=== PATIENT | male | born 1955 | race Caucasian/White ===

== ENCOUNTER 2016-12-12 09:55 | Inpatient (IN) | payer BC ==
--- NOTE | 2016-11-17 09:02 | PAT Medication Instructions ---
Service Date Nov 17, 2016. Current Home Medication List No Active Prescriptions or Reported Meds Medication Instructions For Your Scheduled Surgery No Active Prescriptions or Reported Meds- Please contact PAT department if started on any medications prior to surgery. If you have any questions please call us at [phone] (Nimco Raines PA-C) or [phone] or [phone]
[2016-11-17 09:38] LABS: BASO % 0.9 %; BASO ABS # 0.04 K/uL (0-0.2); COMPLETE YES; EOS % 4.1 %; HEMATOCRIT 39.8 % (42-52); IG% 0.2 %; LYMPH % 35.4 %; LYMPH ABS # 1.66 K/uL (1.2-3.4); MEAN CELL VOLUME 93.4 fL (80-100); MEAN CORPUSCULAR HEMOGLOBIN 33.8 pg (25-34); MEAN CORPUSCULAR HGB CONC 36.2 g/dl (32-36); MEAN PLATELET VOLUME 11.1 fL (7.4-10.4); MONO % 11.3 %; NEUT % 48.1 %; PLATELET COUNT 209 K/uL (130-400); RED BLOOD COUNT 4.26 M/uL (4.7-6.1); WHITE BLOOD COUNT 4.69 K/uL (4.8-10.8)
--- NOTE | 2016-11-17 09:44 | DIAGNOSTIC IMAGING REPORT ---
CHEST PREADMISSION(PA/LAT) CLINICAL HISTORY: PAT preoperative evaluation COMPARISON STUDY: No previous studies for comparison. FINDINGS: The bones soft tissues and hemidiaphragms are normal. The cardiomediastinal silhouette is normal. The lungs are clear. The pulmonary vasculature is normal. IMPRESSION: Negative chest. Electronically signed by: Eliud Anglin M.D. 11/17/2016 9:42 AM Dictated Date/Time: 11/17/2016 9:41 AM
[2016-11-17 09:51] LABS: PARTIAL THROMBOPLASTIN RATIO 1.1; PROTHROMBIN TIME (PATIENT) 10.6 SECONDS (9.0-12.0)
[2016-11-17 10:25] LABS: BUN/CREATININE RATIO 19.7 (10-20); CALCIUM 9.2 mg/dl (8.5-10.1); CREATININE 0.89 mg/dl (0.60-1.40); POTASSIUM 3.8 mmol/L (3.5-5.1)
--- NOTE | 2016-12-06 21:23 | HISTORY & PHYSICAL EXAMINATION ---
DATE OF ADMISSION: 12/12/2016 CHIEF COMPLAINT: Left knee pain. HISTORY OF PRESENT ILLNESS: A 61-year-old gentleman from [place] who presents for treatment of his left knee. He has got a long history of bilateral knee pain and discomfort, the left side greater than right. He has been followed by Dr. Enriquez. The pain has been going on and gradually progressive over the past 5 years. He has been treated with multiple injections which have become less successful over time. His knee does pretty much hurt all the time. It is increased with weightbearing. The left knee is worse than the right and he would like to have it replaced. PAST MEDICAL HISTORY: Noncontributory. PREVIOUS SURGERIES: None. ALLERGIES: No known drug allergies. CURRENT MEDICATIONS: Various anti-inflammatories. SOCIAL HISTORY: A 61-year-old gentleman. He is from [place]. 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 FAMILY HISTORY: Noncontributory. REVIEW OF SYSTEMS: Negative for diabetes, neurologic problems, vascular problems or bleeding disorders. He denies any chest pain or shortness of breath. No history of DVT or PE. PHYSICAL EXAMINATION: GENERAL: Reveals a healthy, pleasant, middle-aged male. He looks to be in good health. HEENT: Benign. NECK: Supple. No lymphadenopathy. LUNGS: Clear to auscultation. HEART: Regular rate and rhythm. ABDOMEN: Soft, nontender and nondistended. EXTREMITIES: Grossly neurovascularly intact except as follows: Examination of the left knee reveals the patient ambulates with varus alignment to both knees. He is tender over the medial joint line. He does have a varus thrust with weightbearing. Small knee effusion. Range of motion is 5 to 125. No instability. X-RAYS: X-rays of the left knee were reviewed. It shows advanced left knee DJD. He has got complete loss of his medial joint space. He has subchondral sclerosis. He has got flattening of the tibial plateau. Less severe changes on the right side. ASSESSMENT: A 61-year-old male, with bilateral knee pain and degenerative joint disease. The left side is worse than the right. He has failed conservative treatment and would like to have his left knee replaced. PLAN: We are going to take him to the operating room and do a left total knee replacement. The risks and benefits of this procedure were explained to the patient including but not limited to DVT, PE, , infection, neurological injury, vascular injury, bleeding problems, pain, limited range of motion, stiffness, failure to relieve symptoms, incomplete relief of symptoms, need for further surgery in the future, fracture, leg length inequality, nerve palsy, etc. The patient understands and desires to proceed. Informed consent was obtained. He has stopped his NSAIDs 10 days preop. He is planning on doing the right knee in about 3 months afterwards. He is planning to be discharged to home. His will assist in his care. He will go to outpatient therapy likely. FOZIA
[~2016-12-12] VITALS: Ht 188 cm; Wt 107.4 kg
[2016-12-12] VITALS (7 sets, daily range): BP systolic 113–157; BP diastolic 71–94; PULSE 65–78; TEMP 36.5–37; O2SAT 97–99; Ht 188 cm; Wt 107.4 kg
[2016-12-12] MEDS: BUPIVACAINE LIPOSOME 266 MG, BUPIVACAINE/EPINEPHRINE INJ 50 ML, SODIUM CHLORIDE 0.9% PF... INFIL SCH ×9 (06:00→12:52)
[~2016-12-12 09:55] MED LIST: ACETAMINOPHEN 500 MG TAB PO SCH; CEFAZOLIN 2000 MG/60 ML D5W 60 ML IV SCH; FAMOTIDINE 20 MG TAB PO SCH; GABAPENTIN 300 MG CAP PO SCH; LACTATED RINGER'S 1000ML 1,000 ML IV SCH; LACTATED RINGER'S 1000ML 500 ML IV ONE; LACTATED RINGER'S 1000ML IV SCH; METOCLOPRAMIDE HCL 10 MG TAB PO SCH; ROPIVACAINE 0.5% 5 MG/ML 30 ML VIAL ONE; SCOPOLAMINE 1.5 MG TDSY TD SCH; TRANEXAMIC ACID INJ 1,000 MG in SODIUM CHLORIDE 0.9% 100ML 100 ML IV SCH
[2016-12-12] MEDS ORDERED: MIDAZOLAM HCL 1 MG/ML 2ML VIAL ONE ×2 (10:32→11:42)
[2016-12-12] MEDS ORDERED: FENTANYL CITRATE INJ 50 MCG/1 ML 2 ML VIAL ONE (10:32)
[2016-12-12] MEDS ORDERED: SODIUM CHLORIDE 0.9% PF 50 ML VIAL ONE (10:44)
[2016-12-12] MEDS ORDERED: BUPIVACAINE/EPINEPHRINE 0.25% 1:200,000 30 ML VIAL ONE (10:44)
[2016-12-12] MEDS ORDERED: BACITRACIN 50000 UNIT VIAL ONE (10:45)
[2016-12-12] MEDS ORDERED: BUPIVACAINE LIPOSOME 1/3% 266 MG/20 ML VIAL INFIL ONE (10:45)
[2016-12-12] MEDS ORDERED: BUPIVACAINE 0.5 % 5 MG/1 ML PF 10ML VIAL ONE (11:43)
--- NOTE | 2016-12-12 11:51 | History & Physical Bridge Note ---
H&P Re-Evaluation Bridge Note: I have examined the patient, reviewed the History & Physical and in the interval since the performance of the History & Physical I have noted the following changes of clinical significance: No changes noted
[2016-12-12] MEDS ORDERED: LIDOCAINE HCL 2% 2 ML VIAL (20MG/ML) ONE (12:23)
[2016-12-12] MEDS ORDERED: PROPOFOL IV EMULSION 10 MG/ML 20 ML VIAL IV ONE (12:23)
[2016-12-12] MEDS ORDERED: ATROPINE SULFATE 0.1 MG/ML 5ML SYR IV PRN (13:00)
[2016-12-12] MEDS ORDERED: ONDANSETRON INJ 2 MG/ML 2 ML VIAL IV PRN ×2 (13:00→13:45)
[2016-12-12] MEDS ORDERED: EpHEDrine SULFATE INJ 50 MG/ML AMP IV PRN (13:00)
[2016-12-12] MEDS ORDERED: PHENYLEPHRINE 100MCG/ML 5ML SYR IV PRN (13:00)
[2016-12-12] MEDS ORDERED: HYDROmorphone INJ 2 MG/ML SYR/VIAL IV PRN (13:00)
--- NOTE | 2016-12-12 13:39 | [facility] Post Operative Brief Note ---
Immediate Operative Summary Operative Date Dec 12, 2016. Pre-Operative Diagnosis Left knee degenerative joint disease Post-Operative Diagnosis same as pre-operative Procedure(s) Performed Left Total Knee Arthroplasty, Cemented Surgeon Dr. Rohit Martin Digital Field Service Technician Surgeon(s) Ron Linda PA-C Estimated Blood Loss 50ml Findings Left Knee DJD Fluids (cc crystalloids) 1300 cc Specimens A: Left knee bone and tissue Drains None Anesthesia Spinal Complication(s) None Disposition Recovery Room / PACU
[2016-12-12] MEDS ORDERED: MAGNESIUM HYDROXIDE SUSP 30 ML UDC PO PRN (13:45)
[2016-12-12] MEDS ORDERED: SILVER SULFADIAZINE 1% CR 50 GM JAR EXT PRN (13:45)
[2016-12-12] MEDS ORDERED: MoRPHine SULFATE 2 MG/ML CARP IV PRN (13:45)
[2016-12-12] MEDS ORDERED: ALUMINUM/MAGNESIUM/SIMETH (MAALOX MAX) 30 ML UDC PO PRN (13:45)
[2016-12-12] MEDS ORDERED: METOCLOPRAMIDE HCL INJ 5 MG/ML 2 ML VIAL IV PRN (13:45)
[2016-12-12] MEDS ORDERED: BISACODYL 10 MG SUPP PR PRN (13:45)
[2016-12-12] MEDS ORDERED: DiphenhydrAMINE HCL 50 MG/ML VIAL IV PRN (13:45)
[2016-12-12] MEDS ORDERED: ZOLPIDEM TARTRATE 5 MG TAB PO PRN (13:45)
[2016-12-12] MEDS ORDERED: TAMSULOSIN HCL 0.4 MG CAP PO PRN (13:45)
--- NOTE | 2016-12-12 14:05 | OPERATIVE REPORT ---
DATE OF OPERATION: 12/12/2016 PREOPERATIVE DIAGNOSIS: Left knee degenerative joint disease. POSTOPERATIVE DIAGNOSIS: Same. PROCEDURE PERFORMED: Left cemented posterior stabilized total knee arthroplasty. COMPLICATIONS: None. ESTIMATED BLOOD LOSS: 50 mL. FLUID REPLACEMENT: 1300 mL crystalloid fluid replacement. ANESTHESIA: Spinal with adductor canal block. DRAINS: None. SPECIMENS: Left knee sent for pathology. TOURNIQUET TIME: 58 minutes at 300 mmHg. OPERATIVE INDICATIONS: The patient is a 61-year-old gentleman who has had a fairly long history of bilateral knee pain and discomfort, left side greater than the right. He has been treated conservatively by my partner Dr. Enriquez over the past 5 years. He failed conservative treatment. He elected to proceed with left total knee arthroplasty with plans of doing the right knee in several months. OPERATIVE FINDINGS: Operative findings revealed advanced left knee DJD. He had grade 4 [id number] disease in all 3 compartments. He had osteophytes in all 3 compartments. Significant varus knee with large joint effusion. OPERATIVE IMPLANTS: Operative implants consisted of: 1. Biomet Vanguard size 75 left posterior stabilized femoral component. 2. Biomet size 87 tibial tray. 3. A 14-mm posterior stabilized polyethylene insert. 4. A 37 x 10 all poly patella. OPERATIVE PROCEDURE: The patient was taken to the operating room, identified and placed on the operating table in supine position. All contact areas were appropriately padded. IV antibiotics provided by anesthesia team. A spinal anesthetic and adductor canal block had been provided in the holding area. Sullivan catheter was placed in sterile fashion. Left thigh tourniquet was then placed and left lower extremity was then prepped and draped in the usual sterile fashion. Left leg was elevated and exsanguinated with the use of an Esmarch and tourniquet was placed at 300 mmHg. An anterior approach to the left knee was then performed through a longitudinal incision centered over the patella. Sharp dissection was carried out through the subcutaneous tissues down to the level of the extensor mechanism. A medial parapatellar arthrotomy incision was made. Some subperiosteal dissection was carried out medially. The fat pad was resected from beneath the patellar tendon. The lateral patellofemoral ligament was released. The patella was everted and knee was flexed. The osteophytes were taken off the distal femur. The ACL and PCL were then released from the distal femur and tibia subluxated anteriorly. The external tibial alignment jig was then placed in the anterior face of the tibia and adjusted to about 16 mm medially. Proximal tibial cut was made to remove about a millimeter of bone from the most deficient aspect of the posteromedial tibial plateau. Some osteophytes were taken off medial and posteromedially. The tibia was sized to a size 87. Attention was then drawn to the femur. The distal femur was entered with a sharp drill bit. Intramedullary canal was suctioned. A left 6-degree valgus cutting guide was placed. Distal femoral cutting block was pinned in place. Distal femoral cut was made to take an additional 3 mm of bone off the distal femur. The femur was then sized to a size 75. We did downsize this just slightly smaller than an 80. The AP cutting block was then pinned parallel to the epicondylar axis, which was 5 degrees of external rotation. The anterior cut, anterior chamfer cut, posterior cut, and posterior chamfer cuts were made. Box cutting guide was placed and adjusted slightly lateral and the box cut was made. The remnants of the medial and lateral meniscus were excised. The osteophytes were taken off the posterior aspect of the femur. Trial femoral component was placed. Tibial tray was pinned in maximum external rotation and drill and stem punch were used to create defect in proximal tibia for the tibial tray. The knee was then trialed and the 14-mm insert fit most appropriately. Attention was then drawn to the patella. The patella was cleaned of all soft tissues. Patella thickness measured 25 mm in thickness and was cut down to 15. It was sized to a size 37 patella. Lug holes were drilled for a 37 patella. Lateral osteophyte was removed. Patella button was placed. Knee was taken through range of motion and patella tracked nicely with no thumbs test. Attention was then drawn toward placement of permanent components. All trial components were removed. A bone plug was placed in the distal femur to limit blood loss. A double patch Palacos G cement was mixed. A left size 75 posterior stabilized femoral component, size 87 tibial tray, a 14 mm posterior stabilized polyethylene insert, and a 37 x 10 all poly patella were then cemented in place. Knee was brought out into full extension until cement hardened. A final cement check was then performed. Pericapsular tissues were injected with a total of 100 mL of a combination of 20 mL of Exparel, 30 mL normal saline, and 50 mL of 0.25% Marcaine with epinephrine. The patient did receive 1 gram of tranexamic acid. The tourniquet was then let down for final tourniquet time of 58 minutes. Hemostasis was assured with use of electrocautery. The extensor mechanism was then closed with a combination of #1 PDS suture and #1 Vicryl suture in a [id number] fashion. Extensor mechanism was checked and found to be intact. The subcutaneous tissues were then closed with 2-0 Dexon suture in a buried interrupted fashion. Skin was closed skin amita. Leg was then cleaned and dried and a sterile dressing of Xeroform, 4 x 4, sterile cast padding and an Tao bandage were applied. The patient then transferred to the recovery room in stable condition. The patient tolerated the procedure well with no complications. All needle and sponge counts were correct at the end of the operation. I attest to the content of the Intraoperative Record and any orders documented therein. Any exceptio ns are noted below.
--- NOTE | 2016-12-12 14:25 | DIAGNOSTIC IMAGING REPORT ---
TWO VIEWS LEFT KNEE CLINICAL HISTORY: Postoperative examination. FINDINGS: AP and crosstable lateral portable views of the left knee are obtained. A left knee arthroplasty is in near anatomic alignment. There has been undersurface remodeling of the patella. No acute fracture is seen. There are expected postoperative changes around the knee including skin clips, soft tissue edema, and subcutaneous gas. IMPRESSION: Expected postoperative changes status post left knee arthroplasty. No acute fracture is seen. Electronically signed by: Laz Guerrero M.D. 12/12/2016 2:24 PM Dictated Date/Time: 12/12/2016 2:24 PM
[2016-12-12] MEDS: CHECK SCOPOLAMINE PATCH PLACEMENT SCH ×2 (16:00→23:00)
[2016-12-12] MEDS: D5W AND 1/2NSS + 20MEQ KCL 1,000 ML IV SCH ×2 (16:39→21:42)
--- NOTE | 2016-12-12 17:22 | Anesthesiology Progress Note ---
Anesthesia Post Op Note Date & Time Dec 12, 2016 at 17:22 Vital Signs Pain Intensity: 0.0 Vital Signs Past 12 Hours Date Time Temp Pulse Resp B/P Pulse Ox O2 Delivery O2 Flow Rate FiO2 12/12/16 17:16 36.7 66 16 148/85 99 Nasal Cannula 2.0 12/12/16 16:11 36.7 67 16 152/94 99 Nasal Cannula 2.0 12/12/16 15:32 36.5 65 16 157/90 99 Nasal Cannula 2.0 12/12/16 15:00 Nasal Cannula 12/12/16 15:00 36.5 73 16 138/77 98 Nasal Cannula 2.0 12/12/16 15:00 Nasal Cannula 2.0 12/12/16 14:35 36.6 68 18 134/84 100 Nasal Cannula 3 12/12/16 14:25 69 18 134/75 100 Nasal Cannula 3 12/12/16 14:15 69 18 138/78 100 Mask 5 12/12/16 14:05 67 18 135/62 100 Mask 10 12/12/16 13:55 74 18 128/77 100 Mask 10 12/12/16 13:48 36.6 80 16 135/76 100 Mask 10 12/12/16 10:56 37.0 78 16 140/87 98 Room Air Notes Mental Status: alert / awake / arousable, participated in evaluation Pt Amnestic to Procedure: Yes Nausea / Vomiting: adequately controlled Pain: adequately controlled Airway Patency, RR, SpO2: stable & adequate BP & HR: stable & adequate Hydration State: stable & adequate Anesthetic Complications: no major complications apparent
[2016-12-12] MEDS: FERROUS GLUCONATE 324 MG TAB PO SCH (18:43)
[2016-12-12] MEDS: KETOROLAC TROMETHAMINE 30 MG/ML VIAL IV. SCH ×2 (18:43→23:01)
[2016-12-12] MEDS: OXYCODONE HCL IR 5 MG TAB (IMMEDIATE RELEASE) PO PRN ×2 (19:18→23:04)
[2016-12-12] MEDS ORDERED: TRANEXAMIC ACID INJ 1,000 MG in SODIUM CHLORIDE 0.9% 100ML 100 ML IV SCH (20:00)
[2016-12-12] MEDS: ASPIRIN 325 MG ECTAB PO SCH (20:33)
[2016-12-12] MEDS: TAPENTADOL ER 50 MG TABCR PO SCH (20:33)
[2016-12-12] MEDS: DOCUSATE SODIUM 100 MG CAP PO SCH (20:33)
[2016-12-12] MEDS: CEFAZOLIN IV 2,000 MG in DEXTROSE 5% 50ML 50 ML IV SCH (20:34)
[2016-12-12] MEDS: ACETAMINOPHEN 500 MG TAB PO SCH (20:34)
[2016-12-13] VITALS (7 sets, daily range): BP systolic 121–146; BP diastolic 70–78; PULSE 67–80; TEMP 36.8–37.6; O2SAT 96–98
[2016-12-13] MEDS: CEFAZOLIN IV 2,000 MG in DEXTROSE 5% 50ML 50 ML IV SCH (03:51)
[2016-12-13] MEDS: D5W AND 1/2NSS + 20MEQ KCL 1,000 ML IV SCH ×2 (03:52→11:14)
[2016-12-13] MEDS: KETOROLAC TROMETHAMINE 30 MG/ML VIAL IV. SCH ×4 (05:13→23:09)
[2016-12-13] MEDS: ACETAMINOPHEN 500 MG TAB PO SCH ×3 (05:13→20:47)
[2016-12-13 06:18] LABS: MEAN CELL VOLUME 92.4 fL (80-100); MEAN CORPUSCULAR HEMOGLOBIN 32.8 pg (25-34); MEAN CORPUSCULAR HGB CONC 35.5 g/dl (32-36); PLATELET COUNT 167 K/uL (130-400); RED BLOOD COUNT 3.14 M/uL (4.7-6.1)
[2016-12-13 06:57] LABS: BUN/CREATININE RATIO 14.2 (10-20); CREATININE 0.97 mg/dl (0.60-1.40)
[2016-12-13] MEDS: CHECK SCOPOLAMINE PATCH PLACEMENT SCH ×3 (08:00→23:12)
--- NOTE | 2016-12-13 08:35 | PROGRESS NOTE ---
DATE: 12/13/2016 DATE: 12/13/2016. SUBJECTIVE: A 61-year-old gentleman postop day #1 from left knee replacement. He is doing pretty well. Pretty painful last night, but pain is gone this morning. No chest pain or shortness of breath. Not feeling dizzy or lightheaded. OBJECTIVE: VITAL SIGNS: Temperature 36.9. Vital signs stable. PHYSICAL EXAMINATION: GENERAL: Physical examination reveals a healthy, pleasant, middle-aged male. He is sitting up in bed and reading a book. LUNGS: Clear to auscultation. HEART: Regular rate and rhythm. ABDOMEN: Soft, nontender, nondistended. EXTREMITY EXAMINATION: Grossly neurovascularly intact except as follows: Examination of the left lower extremity reveals the leg to be well aligned. Dressing is clean, dry, and intact. He can dorsiflex and plantarflex his foot appropriately. He is neurologically intact. LABORATORY DATA: Hemoglobin 10.3, hematocrit 29.0. Electrolytes are stable. ASSESSMENT: A 61-year-old gentleman postop day #1 from a left knee replacement, doing pretty well. Pain is controlled. He is anemic, but without symptoms. PLAN: 1. DVT prophylaxis including thigh-high TEDs, SCDs, and aspirin twice a day. 2. PT/OT. Weightbearing as tolerated. Left total knee protocol. 3. Pain control. Doing pretty well with current pain regimen. 4. Anemia. He is slightly anemic, but asymptomatic and should not need any further management for this other than iron supplementation. 5. Disposition: Plan to discharge to home and he is going to do outpatient therapy once adequately recovered.
[2016-12-13] MEDS: ASPIRIN 325 MG ECTAB PO SCH ×2 (09:11→20:46)
[2016-12-13] MEDS: MULTIVITAMIN TAB PO SCH (09:12)
[2016-12-13] MEDS: FERROUS GLUCONATE 324 MG TAB PO SCH ×3 (09:12→17:05)
[2016-12-13] MEDS: DOCUSATE SODIUM 100 MG CAP PO SCH ×2 (09:12→20:46)
[2016-12-13] MEDS: PANTOprazole SOD 40 MG TAB PO SCH (09:12)
[2016-12-13] MEDS: OXYCODONE HCL IR 5 MG TAB (IMMEDIATE RELEASE) PO PRN ×2 (09:16→17:09)
[2016-12-13] MEDS: TAPENTADOL ER 50 MG TABCR PO SCH ×2 (09:16→20:47)
[2016-12-13] MEDS ORDERED: NURSING VERBAL MED ORDER ONE (17:30)
[2016-12-13] MEDS ORDERED: OXYC-57 PO (18:12)
[2016-12-13] MEDS ORDERED: FRRG PO (18:12)
[2016-12-13] MEDS ORDERED: ASPEC325 PO (18:12)
[2016-12-13] MEDS ORDERED: MORP15TA19 PO (18:12)
--- NOTE | 2016-12-13 18:14 | Discharge Instructions ---
Discharge Instructions Date of Service Dec 13, 2016. Admission Reason for Admission: Left Knee Degenerative Joint Disease Discharge Discharge Diagnosis / Problem: Left Knee Replacement Discharge Goals Goal(s): Decrease discomfort, Improve function, Increase independence, Improve disease control, Therapeutic intervention Activity Recommendations Activity Limitations: per Instructions/Follow-up section Weightbearing Status: Left weightbearing . Instructions / Follow-Up Instructions / Follow-Up ACTIVITY RECOMMENDATIONS: Physical Therapy: * You will go to physical therapy three times each week for four to six weeks after your surgery in order to regain your knee range of motion and to retrain your knee to work properly. * It is just as important to make sure you are getting your knee perfectly straight as it is to regain your knee bend. * Taking a pain pill an hour before therapy can help you have a more productive and comfortable therapy session. Home Exercise: * You were shown a series of exercises (heel props, heel slides, etc.) in the hospital. Do these exercises three to four times each day including the exercises you were shown in physical therapy. Walking: * Get up and walk several times each day. For the first four weeks, try not to stand or walk for more than one hour at a time. If you do stand or walk for more than one hour, you will not hurt anything, but your knee and leg will likely swell. * As you feel comfortable, you may change from the walker or crutches to a cane and then to independent walking. MEDICATIONS: New Medicine: * You will likely be taking one or more of these medications: 1. MS Contin - A long-acting pain medication. Take 1 tablet twice a day for the first ten days to decrease your baseline level of pain. 2. Percocet - A quick and shorter-acting pain medication. Take one to two tablets every four to six hours to lessen your pain. 3. Iron Sulfate - Take three times each day for the month after surgery to help you replace the blood lost during surgery. 4. Aspirin - Thins your blood to lessen the chance of forming a blood clot. * The most common side effects of pain medicine and iron are nausea and constipation. If nausea or constipation is too much of a problem or if you have any questions about your new medicines or doses, call [facility] at [phone]. We will try to help you manage these issues. VERY IMPORTANT TO READ AND REVIEW" Pain: * The immediate post-operative period after knee replacement surgery is often quite painful. * You are given a prescription for pain medicine. You should take it, as directed, when you need it, especially before physical therapy and before going to bed. Pain that interferes with sleep is very common and can last several months. * You will likely need pain medicine for the first four to six weeks. It will not stop all of the pain. The pain will lessen and as you feel better, you may change to milder pain medicine such as Tylenol. * The most common side effects of pain medicine are nausea and constipation, so don't take more than you need. SPECIAL CARE INSTRUCTIONS: TEDs/Elastic Stockings: * The white elastic stockings help limit swelling and prevent blood clots from forming in your legs. The more you wear them, the more they work. * Wear them for six weeks after knee replacement surgery and four weeks after partial knee replacement. Prevention of Infection: * Take antibiotics one hour before any dental cleaning, dental work, urological procedure, gastrointestinal procedure or any invasive surgery in order to prevent your new joint from getting infected. * You may get the antibiotics from the doctor performing the procedure or you may call our office at before and we will call in a prescription to the pharmacy of your choice. Things to Watch For: * Drainage from the incision site that occurs more than one week after your surgery. * Severely increased knee/leg pain or swelling. * Increased redness at the incision site. * Fever above 102 degrees Fahrenheit. * Unusual chest pain or shortness of breath. * Unusual pain or burning with urination. Call [facility] at with any of the above problems or if you have any questions about your medicines or recovery. FOLLOW UP VISIT: Make an appointment to see your doctor for approximately two weeks after surgery for a progress check and staple removal by calling the office at . Current Hospital Diet Patient's current hospital diet: Regular Diet Discharge Diet Recommended Diet: Regular Diet Procedures Procedures Performed: Left Total Knee Arthroplasty, Cemented Pending Studies Studies pending at discharge: no Medical Emergencies . Who to Call and When: Medical Emergencies: If at any time you feel your situation is an emergency, please call [phone] immediately. . Non-Emergent Contact Non-Emergency issues call your: Surgeon . "Provider Documentation" section prepared by Rohit Martin. VTE Core Measure Inpt VTE Proph given/why not?: Other Anticoagulation, T.E.D. Stockings, SCD's
[2016-12-14] MEDS ORDERED: NURSING DECISION MEDICATION ORDER SCH (03:45)
[2016-12-14] MEDS: KETOROLAC TROMETHAMINE 30 MG/ML VIAL IV. SCH (05:22)
[2016-12-14] MEDS: ACETAMINOPHEN 500 MG TAB PO SCH (05:22)
[2016-12-14 06:32] VITALS: BP 134/88; PULSE 108; TEMP 36.8; O2SAT 97
[2016-12-14] MEDS: PANTOprazole SOD 40 MG TAB PO SCH (07:16)
[2016-12-14] MEDS: FERROUS GLUCONATE 324 MG TAB PO SCH (07:16)
[2016-12-14] MEDS: MULTIVITAMIN TAB PO SCH (07:16)
[2016-12-14] MEDS: TAPENTADOL ER 50 MG TABCR PO SCH (07:17)
[2016-12-14] MEDS: ASPIRIN 325 MG ECTAB PO SCH (07:31)
[2016-12-14] MEDS: DOCUSATE SODIUM 100 MG CAP PO SCH (07:31)
--- NOTE | 2016-12-14 08:36 | PROGRESS NOTE ---
DATE: 12/14/2016 SUBJECTIVE: A 61-year-old gentleman postop day 2 from a right knee replacement. He is doing pretty well. Denies any chest pain or shortness of breath. Not feeling dizzy or lightheaded. Pain has been controlled. OBJECTIVE: VITAL SIGNS: Temperature 36.8. Vital signs stable. GENERAL: Reveals a healthy, pleasant, middle-aged male. He is sitting up in his bedside chair reading a book and looks pretty comfortable. LUNGS: Clear to auscultation. HEART: Regular rate and rhythm. ABDOMEN: Soft, nontender, nondistended. EXTREMITIES: Grossly neurovascularly intact except as follows: Examination of the left lower extremity reveals the dressing to be clean, dry and intact. Leg is well aligned. Some mild swelling. He is neurologically intact. ASSESSMENT: A 61-year-old gentleman postop day 2 from a left knee replacement, doing pretty well. Pain is controlled. PLAN: 1. DVT prophylaxis including thigh-high TEDs, SCDs, and aspirin twice a day. 2. PT/OT. Weightbearing as tolerated. Left total knee protocol. 3. Pain control, doing pretty well with current pain regimen. 4. Disposition: Plan to discharge to home. He is going to do outpatient therapy.
[2016-12-14 09:07] VITALS: BP 134/88; PULSE 108; O2SAT 97
[2016-12-14 11:48] VITALS: BP 134/88; PULSE 108; TEMP 36.8; O2SAT 97
--- NOTE | 2016-12-16 15:10 | EDITING REQUIRED CODING QUERY ---
ANEMIA Dear , To promote full compliance with coding requirements relating to patient care, physician participation is requested in all cases of multimedia production assistant uncertainty. Please assist us with the question(s) below: Coding Question(s): anemia Medical documentation: A 61-year-old gentleman postop day #1 from a left knee replacement, doing pretty well. Pain is controlled. He is anemic, but without symptoms. Please specify the known or suspected type by placing an "X" within the parenthesis (x). If other, please document type. Examples are: ( ) Acute blood loss anemia (x) Acute Postoperative blood loss anemia ( ) Acute postoperative anemia due to dilutional fluids ( ) Chronic blood loss anemia ( ) Anemia of chronic disease ( ) Anemia due to renal disease ( ) Iron deficient anemia ( ) Anemia, unspecified or other ( ) Other: (please specify) ( ) Unable to determine Thank you for your time. Karol Harper, DRYING MACHINE BACK TENDER
--- NOTE | 2016-12-16 15:13 | EDITING REQUIRED CODING QUERY ---
ANEMIA Dear , To promote full compliance with coding requirements relating to patient care, physician participation is requested in all cases of cake winder uncertainty. Please assist us with the question(s) below: Coding Question(s): ANEMIA Medical documentation: A 61-year-old gentleman postop day #1 from a left knee replacement, doing pretty well. Pain is controlled. He is anemic, but without symptoms. Please specify the known or suspected type by placing an "X" within the parenthesis (x). If other, please document type. Examples are: ( ) Acute blood loss anemia ( ) Acute Postoperative blood loss anemia ( ) Acute postoperative anemia due to dilutional fluids ( ) Chronic blood loss anemia ( ) Anemia of chronic disease ( ) Anemia due to renal disease ( ) Anemia in neoplastic disease ( ) Iron deficient anemia ( ) Anemia, unspecified or other ( ) Other: (please specify) ( ) Unable to determine Thank you for your time, Karol Harper, PULPIT OPERATOR
--- NOTE | 2016-12-22 19:03 | DISCHARGE SUMMARY ---
ADMITTING PHYSICIAN AND SURGEON: . ADMITTING DIAGNOSIS: Left knee degenerative joint disease. SURGERY PERFORMED: Left total knee arthroplasty. SECONDARY DIAGNOSIS: Noncontributory. CONSULTS: None obtained. HISTORY AND PHYSICAL EXAMINATION: Well documented in the patient's chart. HOSPITAL COURSE: The patient was admitted on 12/12/2016, underwent total knee arthroplasty and tolerated the procedure well, there were no complications. He was transferred to the PACU postoperatively and later to the orthopedic floor for further care. He was given Ancef for antibiotic prophylaxis; JAIR stockings, SCDs and aspirin for DVT prophylaxis. Hemoglobin, hematocrit, and vital signs were monitored during his hospital stay and remained stable. He developed some postoperative anemia with hemoglobin of 10.3. Did not require any blood transfusions. There were no complications. By postoperative day 2, he was tolerating a general diet. Pain was controlled with oral pain medicine. He was participating in physical therapy and had no signs or symptoms of deep vein thrombosis. On postoperative day 2, he was discharged home in good condition. He was given printed discharge instructions including prescriptions for aspirin 325 mg b.i.d., iron supplement, MS Contin and Percocet. Continue physical therapy, weightbearing as tolerated, JAIR stockings. Follow up with in 10-12 days or sooner if there are problems or concerns.
== END 2016-12-14 12:30 | disposition home or self-care (01) | DRG 470 ==
LOC: ENRESERVTM → ENRESERVDT → C.ACU 09:55 → C.3E 13:42
PROVIDERS: ADMIT Orthopaedic Surgery Sports Medicine; ATTEND Orthopaedic Surgery Sports Medicine
PROC: 0SRD0J9 Replacement of Left Knee Joint with Synthetic Substitute, Cemented, Open Approach (ICD-10-PCS; principal; 2016-12-14)
DX: M17.12 Unilateral primary osteoarthritis, left knee (principal); D62 Acute posthemorrhagic anemia; E66.9 Obesity, unspecified; Z68.30 Body mass index [BMI] 30.0-30.9, adult; Z87.891 Personal history of nicotine dependence; Z79.899 Other long term (current) drug therapy

== ENCOUNTER → 2017-02-12 | Outpatient (CLI) | payer BC ==
[~2017-02-12] MED LIST changes: +ACET-24 PO; -ACETAMINOPHEN 500 MG TAB PO SCH; +ASPEC325 PO; -CEFAZOLIN 2000 MG/60 ML D5W 60 ML IV SCH; -FAMOTIDINE 20 MG TAB PO SCH; -GABAPENTIN 300 MG CAP PO SCH; -LACTATED RINGER'S 1000ML 1,000 ML IV SCH; -LACTATED RINGER'S 1000ML 500 ML IV ONE; -LACTATED RINGER'S 1000ML IV SCH; -METOCLOPRAMIDE HCL 10 MG TAB PO SCH; +MORP-157 PO; -ROPIVACAINE 0.5% 5 MG/ML 30 ML VIAL ONE; +RXC5 PO; -SCOPOLAMINE 1.5 MG TDSY TD SCH; -TRANEXAMIC ACID INJ 1,000 MG in SODIUM CHLORIDE 0.9% 100ML 100 ML IV SCH
[2017-02-12 12:55] LABS: BASO % 0.8 %; BASO ABS # 0.04 K/uL (0-0.2); COMPLETE YES; EOS % 4.2 %; HEMATOCRIT 40.9 % (42-52); IG% 0.2 %; LYMPH % 33.9 %; LYMPH ABS # 1.79 K/uL (1.2-3.4); MEAN CELL VOLUME 94.7 fL (80-100); MEAN CORPUSCULAR HEMOGLOBIN 33.1 pg (25-34); MEAN PLATELET VOLUME 10.6 fL (7.4-10.4); MONO % 16.1 %; NEUT % 44.8 %; PLATELET COUNT 271 K/uL (130-400); RED BLOOD COUNT 4.32 M/uL (4.7-6.1); WHITE BLOOD COUNT 5.28 K/uL (4.8-10.8)
[2017-02-12 13:06] LABS: PARTIAL THROMBOPLASTIN RATIO 1.2; PROTHROMBIN TIME (PATIENT) 10.7 SECONDS (9.0-12.0)
[2017-02-12 13:13] LABS: BLOOD UREA NITROGEN 12 mg/dl (7-18); BUN/CREATININE RATIO 14.4 (10-20); C-REACTIVE PROTEIN < 0.29 mg/dl (0-0.29); CARBON DIOXIDE 28 mmol/L (21-32); CHLORIDE 105 mmol/L (98-107); CREATININE 0.85 mg/dl (0.60-1.40); GLUCOSE 83 mg/dl (70-99); POTASSIUM 4.1 mmol/L (3.5-5.1); SODIUM 140 mmol/L (136-145)
[2017-02-12 13:18] LABS: CALCIUM 9.3 mg/dl (8.5-10.1)
== END | disposition home or self-care (01) ==
LOC: C.LABMFLN 14:10
PROVIDERS: ATTEND Orthopaedic Surgery Sports Medicine
DX: Z01.818 Encounter for other preprocedural examination (principal)

== ENCOUNTER 2017-03-06 10:20 | Inpatient (IN) | payer BC ==
[2017-02-05 07:32] VITALS: BMI 31.0
--- NOTE | 2017-02-27 00:21 | HISTORY & PHYSICAL EXAMINATION ---
DATE OF ADMISSION: 03/06/2017 CHIEF COMPLAINT: Right knee pain. HISTORY OF PRESENT ILLNESS: The patient is a 61-year-old gentleman who is status post left knee replacement done 12/12/2016. He now presents for surgical treatment of his right knee. He has got a 5-plus-year history of right knee pain and discomfort. He has been followed by my partner Dr. Enriquez. Treatments have become less successful over time. His left knee replacement is doing well and would like to proceed with right knee replacement. The pain is global in his knee. It is increased with weightbearing. PAST MEDICAL HISTORY: Noncontributory. PREVIOUS SURGERIES: Include left total knee replacement done on 12/12/2016. ALLERGIES: None. CURRENT MEDICATIONS: Various anti-inflammatories. SOCIAL HISTORY: A 61-year-old male. He is from [place]. 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 FAMILY HISTORY: Noncontributory. REVIEW OF SYSTEMS: Negative for diabetes, neurologic problems, vascular problems, bleeding disorders. Denies any chest pain, no shortness of breath. No history of DVT or PE. PHYSICAL EXAMINATION: GENERAL: Reveals a healthy, pleasant middle-aged male. He looks to be in good health. HEENT: Benign. NECK: Supple, no lymphadenopathy. LUNGS: Clear to auscultation. HEART: Has a regular rate and rhythm. ABDOMEN: Soft, nontender, nondistended. EXTREMITIES: Grossly neurovascularly intact except as follows: Examination of the right knee reveals the patient walks with a varus alignment to his knee. Small knee effusion. He is tender over the medial joint line. Range of motion is 5-120. No instability. Examination of the left knee reveals some mild residual swelling. Range of motion 0-115. Good straight leg raise. No signs of infection. X-RAYS: X-ray of the right knee reviewed. It shows advanced right knee DJD. He has got complete loss of his medial joint space. He has got subchondral sclerosis. ASSESSMENT: A 61-year-old gentleman now 3 months out from left total knee replacement with advanced right knee degenerative joint disease. Very happy with his left knee, would like to have his right knee replaced. PLAN: We will take him to the operating room and do right total knee replacement. The risks and benefits of the procedure were explained to the patient including but not limited to DVT, PE, , infection, neurological injury, vascular injury, bleeding problem, pain, limited range of motion, stiffness, failure to relieve symptoms, incomplete relief of symptoms, need for further surgery in the future, fracture, leg length inequality, nerve palsy, etc. The patient understands and desires to proceed. Informed consent was obtained. As far as discharge plans, he is planning to be discharged to home. He will likely use some home health care agency versus going directly to therapy depending on how he does.
[~2017-03-06] VITALS: Ht 185.4 cm; Wt 109.1 kg
[2017-03-06] VITALS (8 sets, daily range): BP systolic 120–147; BP diastolic 71–90; PULSE 68–88; TEMP 36.5–36.9; O2SAT 94–98; Ht 185.4 cm; Wt 109.1 kg
[~2017-03-06 10:20] MED LIST changes: -ACET-24 PO; +ACETAMINOPHEN 500 MG TAB PO SCH; -ASPEC325 PO; +BUPIVACAINE 0.5 % 5 MG/1 ML PF 10ML VIAL ONE; +BUPIVACAINE LIPOSOME 266 MG, BUPIVACAINE/EPINEPHRINE INJ 50 ML, SODIUM CHLORIDE 0.9% PF... INFIL SCH; +BUPIVACAINE/EPINEPHRINE 0.25% 1:200,000 30 ML VIAL ONE; +CEFAZOLIN 2000 MG/60 ML D5W 60 ML IV SCH; +DEXAMETHASONE SOD INJ 4 MG/ML VIAL ONE; +FAMOTIDINE 20 MG TAB PO SCH; +GABAPENTIN 300 MG CAP PO SCH; +LACTATED RINGER'S 1000ML IV SCH; +LACTATED RINGER'S 500 ML IV SCH; +METOCLOPRAMIDE HCL 10 MG TAB PO SCH; -MORP-157 PO; -RXC5 PO; +SCOPOLAMINE 1.5 MG TDSY TD SCH; +TRANEXAMIC ACID INJ 1,000 MG in SODIUM CHLORIDE 0.9% 100ML 100 ML IV SCH
[2017-03-06] MEDS ORDERED: MIDAZOLAM HCL 1 MG/ML 2ML VIAL ONE ×2 (10:49)
[2017-03-06] MEDS ORDERED: LIDOCAINE HCL 2% 2 ML VIAL (20MG/ML) ONE (11:07)
[2017-03-06] MEDS ORDERED: PROPOFOL IV EMULSION 10 MG/ML 20 ML VIAL IV ONE (11:07)
[2017-03-06] MEDS ORDERED: BUPIVACAINE LIPOSOME 1/3% 266 MG/20 ML VIAL INFIL ONE (11:54)
[2017-03-06] MEDS ORDERED: SODIUM CHLORIDE 0.9% PF 50 ML VIAL ONE (11:54)
[2017-03-06] MEDS ORDERED: BUPIVACAINE/EPINEPHRINE 0.25% 1:200,000 30 ML VIAL ONE (11:54)
[2017-03-06] MEDS ORDERED: BACITRACIN 50000 UNIT VIAL ONE (11:54)
[2017-03-06] MEDS ORDERED: ONDANSETRON INJ 2 MG/ML 2 ML VIAL IV PRN ×2 (13:00→15:00)
[2017-03-06] MEDS ORDERED: ATROPINE SULFATE 0.1 MG/ML 5ML SYR IV PRN (13:00)
[2017-03-06] MEDS ORDERED: PROMETHAZINE HCL INJ 6.25 MG in SODIUM CHLORIDE 0.9% 50ML 50 ML IV PRN (13:00)
[2017-03-06] MEDS ORDERED: FENTANYL CITRATE INJ 50 MCG/1 ML 2 ML VIAL IV PRN (13:00)
[2017-03-06] MEDS ORDERED: EpHEDrine SULFATE INJ 50 MG/ML AMP IV PRN (13:00)
--- NOTE | 2017-03-06 14:49 | [facility] Post Operative Brief Note ---
Immediate Operative Summary Operative Date Mar 06, 2017. Pre-Operative Diagnosis Advanced Degenerative Joint Disease Right Knee Post-Operative Diagnosis Advanced Degenerative Joint Disease Right Knee Procedure(s) Performed Right Total Knee Arthroplasty Surgeon Benzene Still Utility Operator Surgeon(s) KINDRA White Estimated Blood Loss 50 ml Findings Right Knee DJD Fluids (cc crystalloids) 1500 cc Specimens A. Right Knee Bone and Tissue Drains None Anesthesia Spinal Complication(s) None Disposition Recovery Room / PACU
[2017-03-06] MEDS ORDERED: MAGNESIUM HYDROXIDE SUSP 30 ML UDC PO PRN (15:00)
[2017-03-06] MEDS ORDERED: ZOLPIDEM TARTRATE 5 MG TAB PO PRN (15:00)
[2017-03-06] MEDS ORDERED: OXYCODONE HCL IR 5 MG TAB (IMMEDIATE RELEASE) PO PRN (15:00)
[2017-03-06] MEDS ORDERED: METOCLOPRAMIDE HCL INJ 5 MG/ML 2 ML VIAL IV PRN (15:00)
[2017-03-06] MEDS ORDERED: SILVER SULFADIAZINE 1% CR 50 GM JAR EXT PRN (15:00)
[2017-03-06] MEDS ORDERED: DiphenhydrAMINE HCL 50 MG/ML VIAL IV PRN (15:00)
[2017-03-06] MEDS ORDERED: ALUMINUM/MAGNESIUM/SIMETH (MAALOX MAX) 30 ML UDC PO PRN (15:00)
[2017-03-06] MEDS ORDERED: MoRPHine SULFATE 2 MG/ML CARP IV PRN (15:00)
[2017-03-06] MEDS ORDERED: BISACODYL 10 MG SUPP PR PRN (15:00)
--- NOTE | 2017-03-06 15:29 | DIAGNOSTIC IMAGING REPORT ---
RIGHT KNEE 1 OR 2 VIEWS ROUTINE CLINICAL HISTORY: Degenerative arthritis. Postop study. COMPARISON: None. DISCUSSION: There are postsurgical changes of a total right knee arthroplasty and patellar resurfacing. The femoral and tibial components appear well seated. Overlying skin amita are visualized. There is air within soft tissues consistent with recent surgery. IMPRESSION: Postsurgical changes of a total right knee arthroplasty. Electronically signed by: Kuldeep Sarah M.D. 03/06/2017 3:28 PM Dictated Date/Time: 03/06/2017 3:27 PM
--- NOTE | 2017-03-06 16:48 | Anesthesiology Progress Note ---
Anesthesia Post Op Note Date & Time Mar 06, 2017 at 16:47 Vital Signs Pain Intensity: 0 Vital Signs Past 12 Hours Date Time Temp Pulse Resp B/P (MAP) Pulse Ox O2 Delivery O2 Flow Rate FiO2 03/06/17 16:29 76 15 97 03/06/17 16:29 74 15 16 16:26 119/73 1617 16:24 74 22 94 1617 16:24 73 22 16 16:22 116/72 1617 16:19 67 18 97 1617 16:19 69 18 16 16:16 135/82 16 16:14 69 15 92 16 16:14 68 15 03/06/17 16:11 118/78 03/06/17 16:09 73 15 16 16:09 71 15 93 03/06/17 16:06 111/66 16 16:04 73 17 03/06/17 16:04 73 17 94 03/06/17 16:03 69 16 96 16 16:03 69 16 16 16:01 122/73 1617 15:58 76 17 93 16 15:58 66 17 16 15:56 112/72 16 15:53 70 15 1617 15:53 70 15 96 1617 15:51 109/70 16/17 15:49 36.9 71 17 109/70 (77) 98 Nasal Cannula 2 03/06/17 15:48 67 13 1617 15:48 71 13 98 16/17 15:46 115/74 16/17 15:43 79 18 94 16/17 15:43 74 18 16/17 15:41 117/70 16/17 15:38 74 14 96 16/17 15:38 71 14 16/17 15:36 118/69 16/17 15:33 69 18 16/17 15:33 72 18 96 16/17 15:31 119/72 16/17 15:28 90 17 99 16/17 15:28 84 17 16/17 15:27 70 15 95 03/06/17 15:27 70 15 03/06/17 15:26 107/72 03/06/17 15:22 73 15 03/06/17 15:22 79 15 90 03/06/17 15:21 112/71 03/06/17 15:17 69 19 03/06/17 15:17 69 19 95 03/06/17 15:16 112/69 03/06/17 15:12 76 20 92 03/06/17 15:12 76 20 03/06/17 15:11 116/75 03/06/17 15:07 79 16 03/06/17 15:07 80 16 97 03/06/17 15:06 81 14 131/78 95 03/06/17 15:06 79 14 03/06/17 15:01 82 17 109/72 93 03/06/17 15:01 81 17 03/06/17 14:56 79 15 03/06/17 14:56 81 15 114/67 96 03/06/17 14:52 112/74 03/06/17 14:51 82 97 03/06/17 14:51 36.4 86 18 112/74 96 Room Air 03/06/17 14:51 82 03/06/17 10:44 36.8 80 18 137/90 97 Room Air Notes Mental Status: alert / awake / arousable, participated in evaluation Pt Amnestic to Procedure: Yes Nausea / Vomiting: adequately controlled Pain: adequately controlled Airway Patency, RR, SpO2: stable & adequate BP & HR: stable & adequate Hydration State: stable & adequate Neuraxial Anesthesia: was administered, sensory block is resolving Anesthetic Complications: no major complications apparent
[2017-03-06] MEDS: CHECK SCOPOLAMINE PATCH PLACEMENT SCH (16:55)
[2017-03-06] MEDS: D5W AND 1/2NSS + 20MEQ KCL 1,000 ML IV SCH (18:28)
[2017-03-06] MEDS: KETOROLAC TROMETHAMINE 30 MG/ML VIAL IV. SCH (19:58)
[2017-03-06] MEDS: TAPENTADOL ER 50 MG TABCR PO SCH (21:27)
[2017-03-06] MEDS: ASPIRIN 325 MG ECTAB PO SCH (21:28)
[2017-03-06] MEDS: DOCUSATE SODIUM 100 MG CAP PO SCH (21:29)
[2017-03-06] MEDS: ACETAMINOPHEN 500 MG TAB PO SCH (21:29)
[2017-03-06] MEDS: SENNA 8.6 MG TAB PO SCH (21:29)
[2017-03-06] MEDS ORDERED: TRANEXAMIC ACID INJ 1,000 MG in SODIUM CHLORIDE 0.9% 100ML 100 ML IV SCH (21:30)
[2017-03-06] MEDS: CEFAZOLIN IV 2,000 MG in DEXTROSE 5% 50ML 50 ML IV SCH (22:08)
[2017-03-07] MEDS: D5W AND 1/2NSS + 20MEQ KCL 1,000 ML IV SCH ×3 (00:17→13:54)
[2017-03-07] MEDS: CHECK SCOPOLAMINE PATCH PLACEMENT SCH ×4 (00:18→23:38)
[2017-03-07] MEDS: KETOROLAC TROMETHAMINE 30 MG/ML VIAL IV. SCH ×4 (01:43→20:25)
[2017-03-07 02:55] VITALS: BP 119/79; PULSE 78; TEMP 36.9; O2SAT 96
[2017-03-07] MEDS: CEFAZOLIN IV 2,000 MG in DEXTROSE 5% 50ML 50 ML IV SCH (06:07)
[2017-03-07] MEDS: ACETAMINOPHEN 500 MG TAB PO SCH ×3 (06:08→22:28)
[2017-03-07 06:25] LABS: HEMATOCRIT 33.3 % (42-52); MEAN CORPUSCULAR HEMOGLOBIN 31.8 pg (25-34); MEAN CORPUSCULAR HGB CONC 34.2 g/dl (32-36); MEAN PLATELET VOLUME 11.2 fL (7.4-10.4); PLATELET COUNT 179 K/uL (130-400); RED BLOOD COUNT 3.58 M/uL (4.7-6.1)
[2017-03-07 07:08] LABS: CREATININE 0.96 mg/dl (0.60-1.40)
[2017-03-07 07:09] LABS: BUN/CREATININE RATIO 13.3 (10-20); POTASSIUM 3.9 mmol/L (3.5-5.1)
[2017-03-07 07:24] VITALS: BP 136/85; PULSE 64; TEMP 36.5; O2SAT 98
[2017-03-07 07:25] VITALS: O2SAT 98
--- NOTE | 2017-03-07 08:21 | OPERATIVE REPORT ---
DATE OF OPERATION: 03/06/2017 SURGEON: Rohit Martin MD. CUSTODIAN MANAGER: KINDRA Carson. PREOPERATIVE DIAGNOSIS: Right knee degenerative joint disease. POSTOPERATIVE DIAGNOSIS: Same. PROCEDURE PERFORMED: Right cemented posterior stabilized total knee arthroplasty. COMPLICATIONS: None. ESTIMATED BLOOD LOSS: 50 mL FLUID REPLACEMENT: 1500 mL crystalloid fluid replacement. ANESTHESIA: Spinal with adductor canal block. DRAINS: None. SPECIMENS: Right knee sent for pathology. TOURNIQUET TIME: 61 minutes at 300 mmHg. OPERATIVE INDICATIONS: The patient is a 61-year-old very active gentleman, with a several year history of increasing bilateral knee pain and discomfort. He has been through extensive conservative treatment. He has continued to limit his daily activities. He underwent a left knee replacement 3.5 months ago and has done well from that. He has continued to be bothered by right knee pain. He elected to proceed with right total knee arthroplasty. OPERATIVE FINDINGS: Operative findings revealed advanced right knee DJD. He had extensive and diffuse grade 4 changes in the medial compartment as well as the patellofemoral compartment. The lateral compartment was fairly well-preserved. He had a moderate sized joint effusion. He had a fixed varus deformity to his knee. OPERATIVE IMPLANTS: Operative implants consisted of: 1. A Biomet size 75 posterior stabilized femoral component. 2. A Biomet size 83 tibial tray. 3. A 12 mm posterior stabilized polyethylene insert. 4. A 37 x 10 all poly patella. OPERATIVE PROCEDURE: The patient was taken to the operating room, identified and placed on the operating table in supine position. All contact areas were appropriately padded. IV antibiotics were provided by the anesthesia team. A spinal anesthetic and adductor canal block had been provided in the holding area. Sullivan catheter was placed in sterile fashion. A right thigh tourniquet was then placed and the right lower extremity was then prepped and draped in the usual sterile fashion. Right leg was elevated and exsanguinated with Esmarch and tourniquet was placed at 300 mmHg. An anterior approach to the right knee was then performed through a longitudinal incision centered over the patella. Sharp dissection was carried through the subcutaneous tissues down to the level of the extensor mechanism. A medial parapatellar arthrotomy incision was made. Some subperiosteal dissection was carried out medially. The fat pad was resected from beneath the patellar tendon. Lateral patellofemoral ligament was released. The patella was everted and knee was flexed. The osteophytes were taken off the distal femur. The ACL and PCL were then released from the distal femur and the tibia subluxated anteriorly. The external tibial alignment jig was then placed in the anterior face of the tibia and adjusted 16 mm medially. Proximal tibial cut was made to remove about a millimeter of bone from the most deficient aspect of the medial tibial plateau. Some osteophytes were taken off medial and posteromedially. Tibia size was size 83. Attention was then drawn to the femur. The distal femur was entered with a sharp drill. Intramedullary canal was suctioned. A right 6 degree valgus cutting guide was placed. Distal femoral cutting block was pinned in place. Distal femoral cut was made to take an additional 3 mm of bone off the distal femur. The femur was then sized to a size 75. We did downsize this slightly. The AP cutting block was pinned parallel to the epicondylar axis, which was 5 degrees of external rotation. The anterior cut, anterior chamfer, posterior cut, and posterior chamfer cuts were made. Box cutting guide was placed and adjusted slightly lateral, box cut was made. The knee was flexed. The remnants of the medial and lateral menisci were excised. The osteophytes were taken off the posterior aspect of the femur. A trial femoral component was placed. Tibial tray was pinned in maximum external rotation and drill and stem punch was used to create defect in proximal tibia for the tibial tray. The knee was then trialed and a 12 mm insert fit most appropriately. Attention was then drawn to the patella. The patella was cleaned of all soft tissues. Patella thickness measured 25 mm in thickness and was cut down to 15. It was sized to a size 37 patella. Lug holes were drilled for the 37 patella. Lateral osteophyte was removed. Patella button was placed. Knee was taken through the range of motion and the patella tracked nicely with no thumb's test. Attention was then drawn toward placement of permanent components. All trial components were removed. A bone plug was placed in the distal femur to limit blood loss. A double batch of Palacos G cement was mixed. A right size ____ component, size 83 tibial tray, 12 mm posterior stabilized polyethylene insert, and a 37 x 10 all poly patella were then cemented in place. The knee was brought out into full extension until cement hardened. A final cement check was then performed. Pericapsular tissues were injected with a total of 100 mL of a combination of 20 mL of Exparel, 30 mL of normal saline, 50 mL of 0.25% Marcaine with epinephrine. The patient did receive 1 gram of tranexamic acid. The tourniquet was then let down for a tourniquet time of 61 minutes. Hemostasis was assured with use of electrocautery. The wound was once again irrigated. The extensor mechanism was then closed with a combination of #1 PDS suture and #1 Vicryl suture in a [id number] fashion. Extensor mechanism was checked, and found to be intact. Subcutaneous tissues were then closed with 2-0 Dexon suture in a buried interrupted fashion. Skin was closed with skin amita. The leg was then cleaned and dried and a sterile dressing of Xeroform, 4 x 4, sterile cast padding and Tao bandage were applied. The patient then transferred to the recovery room in stable condition. The patient tolerated the procedure well with no complications. All needle and sponge counts were correct at the end of the operation. I attest to the content of the Intraoperative Record and any orders documented therein. Any exception s are noted below.
--- NOTE | 2017-03-07 08:35 | PROGRESS NOTE ---
DATE: 03/07/2017 DATE: 03/07/2017. SUBJECTIVE: A 61-year-old gentleman postop day 1 from right knee replacement. He is doing well. Pain is controlled. No chest pain or shortness of breath. Not feeling dizzy or lightheaded. OBJECTIVE: VITAL SIGNS: Temperature 36.5. Vital signs stable. PHYSICAL EXAMINATION: GENERAL: Reveals a pleasant, middle-aged male. He is sitting up in bed and reading a magazine and looks comfortable. LUNGS: Clear to auscultation. HEART: Regular rate and rhythm. ABDOMEN: Soft, nontender, nondistended. EXTREMITY EXAMINATION: Grossly neurovascularly intact except as follows: Examination of the right leg reveals the dressing to be clean, dry and intact. Leg is well aligned. He can dorsiflex and plantarflex his foot appropriately. He is neurologically intact. LABORATORY DATA: Hemoglobin 11.4. Hematocrit 33.3. Electrolytes are stable. ASSESSMENT: A 61-year-old gentleman postop day 1 from right knee replacement, doing pretty well. Pain is controlled. He is neurologically intact. PLAN: 1. DVT prophylaxis including thigh-high TEDs, SCDs, and aspirin twice a day. 2. PT/OT. Weightbearing as tolerated. Right total knee protocol. 3. Pain control. Doing well with current pain regimen. 4. Disposition. Plan to discharge to home. He is going to do outpatient therapy once adequately recovered.
[2017-03-07] MEDS: TAPENTADOL ER 50 MG TABCR PO SCH ×2 (08:51→20:25)
[2017-03-07] MEDS: FERROUS GLUCONATE 324 MG TAB PO SCH ×3 (08:51→18:15)
[2017-03-07] MEDS: ASPIRIN 325 MG ECTAB PO SCH ×2 (08:51→20:25)
[2017-03-07] MEDS: DOCUSATE SODIUM 100 MG CAP PO SCH ×2 (08:51→20:25)
[2017-03-07] MEDS: PANTOprazole SOD 40 MG TAB PO SCH (08:52)
[2017-03-07] MEDS: MULTIVITAMIN TAB PO SCH (08:52)
[2017-03-07 15:15] VITALS: BP 128/80; PULSE 69; TEMP 36.6; O2SAT 99
[2017-03-07] MEDS ORDERED: ASPEC325 PO (15:21)
[2017-03-07] MEDS ORDERED: ACET-24 PO (15:21)
[2017-03-07] MEDS ORDERED: RXC5 PO (15:21)
[2017-03-07] MEDS ORDERED: MORP-157 PO (15:21)
--- NOTE | 2017-03-07 15:23 | Discharge Instructions ---
Discharge Instructions Date of Service Mar 07, 2017. Admission Reason for Admission: Right Knee Degenerative Joint Disease Discharge Discharge Diagnosis / Problem: Right Knee Replacement Discharge Goals Goal(s): Decrease discomfort, Improve function, Increase independence, Improve disease control, Therapeutic intervention Activity Recommendations Activity Limitations: per Instructions/Follow-up section Weightbearing Status: Right weightbearing . Current Hospital Diet Patient's current hospital diet: Regular Diet Discharge Diet Recommended Diet: Regular Diet Procedures Procedures Performed: Right Total Knee Arthroplasty Pending Studies Studies pending at discharge: no Medical Emergencies . Who to Call and When: Medical Emergencies: If at any time you feel your situation is an emergency, please call 911 immediately. . Non-Emergent Contact Non-Emergency issues call your: Surgeon . "Provider Documentation" section prepared by Rohit Martin. . VTE Core Measure Inpt VTE Proph given/why not?: Other Anticoagulation, T.E.D. Stockings, SCD's
[2017-03-07] MEDS: SENNA 8.6 MG TAB PO SCH (20:25)
[2017-03-07 22:45] VITALS: BP 139/79; PULSE 78; TEMP 37.2; O2SAT 98
[2017-03-08] MEDS: KETOROLAC TROMETHAMINE 30 MG/ML VIAL IV. SCH ×2 (02:02→07:58)
[2017-03-08] MEDS: ACETAMINOPHEN 500 MG TAB PO SCH (05:51)
[2017-03-08 06:08] VITALS: BP 143/85; PULSE 90; TEMP 36.5; O2SAT 98
[2017-03-08] MEDS: PANTOprazole SOD 40 MG TAB PO SCH (07:57)
[2017-03-08] MEDS: TAPENTADOL ER 50 MG TABCR PO SCH (07:57)
[2017-03-08] MEDS: FERROUS GLUCONATE 324 MG TAB PO SCH (07:57)
[2017-03-08] MEDS: DOCUSATE SODIUM 100 MG CAP PO SCH (07:58)
[2017-03-08] MEDS: ASPIRIN 325 MG ECTAB PO SCH (07:58)
[2017-03-08] MEDS: MULTIVITAMIN TAB PO SCH (07:58)
[2017-03-08 08:43] VITALS: BP 143/85; PULSE 90; TEMP 36.5; O2SAT 98
--- NOTE | 2017-03-08 12:32 | PROGRESS NOTE ---
DATE: 03/08/2017 SUBJECTIVE: A 61-year-old gentleman postop day 2 from a right knee replacement. He is doing well. His knee has been a little bit more sore than the last one as he recalls. Very manageable, though. Therapy went well. No chest pain or shortness of breath. Not feeling dizzy or lightheaded. OBJECTIVE: PHYSICAL EXAMINATION: VITAL SIGNS: Temperature 36.5. Vital signs stable. GENERAL: Reveals a healthy, pleasant, middle-aged male. He is sitting up at his bedside chair, reading. LUNGS: Clear to auscultation. HEART: Regular rate and rhythm. ABDOMEN: Soft, nontender, nondistended. EXTREMITIES: Grossly neurovascularly intact except as follows. Examination of the right leg reveals the dressing to be clean, dry and intact. The patient a trace bit of bloody drainage. He can dorsiflex and plantarflex his foot appropriately. He is neurologically intact. ASSESSMENT: A 61-year-old gentleman postop day 2 from a right knee replacement, doing pretty well. PLAN: 1. DVT prophylaxis include thigh-high TEDs, SCDs, and aspirin twice a day. 2. PT/OT. Weightbear as tolerated. Right total knee protocol. 3. Pain control, doing well with current pain regimen. 4. Disposition: Plan to discharge to home. He is going to do outpatient therapy.
--- NOTE | 2017-03-12 18:05 | DISCHARGE SUMMARY ---
ADMITTING PHYSICIAN AND SURGEON: . ADMITTING DIAGNOSIS: Right knee degenerative joint disease. SURGERY PERFORMED: Right total knee arthroplasty. SECONDARY DIAGNOSES: Noncontributory. CONSULTS: None obtained. HISTORY AND PHYSICAL EXAMINATION: Well documented in the patient's chart. HOSPITAL COURSE: The patient was admitted on 03/06/2017 underwent total knee arthroplasty, tolerated the procedure well. There were no complications. He was transferred to the PACU postoperatively and later to the orthopedic floor for further care. He was given Ancef for antibiotic prophylaxis, JAIR stockings, SCDs and aspirin for DVT prophylaxis. Hemoglobin, hematocrit and vital signs were monitored during his hospital stay and remained stable. He developed some mild postoperative anemia, did not require any blood transfusions. There were no complications. By postoperative day 2, he was tolerating a general diet, pain was controlled with oral pain medicine. He was participating in physical therapy and had no signs or symptoms of deep vein thrombosis. On postop day 2, he was discharged home. He was given printed discharge instructions including prescriptions for extra strength Tylenol, aspirin 325 mg b.i.d., MS Contin and oxycodone. Continue physical therapy, weightbearing as tolerated, JAIR stockings, total hip precautions and follow up in 10-12 days or sooner if there are any problems or concerns.
== END 2017-03-08 10:02 | disposition home or self-care (01) | DRG 470 ==
LOC: C.ACU 10:20 → C.3E 10:35 → ENRESERV 16:16
PROVIDERS: ADMIT Orthopaedic Surgery Sports Medicine; ATTEND Orthopaedic Surgery Sports Medicine
PROC: 0SRC0J9 Replacement of Right Knee Joint with Synthetic Substitute, Cemented, Open Approach (ICD-10-PCS; principal; 2017-03-06 12:30)
DX: M17.11 Unilateral primary osteoarthritis, right knee (principal); M25.461 Effusion, right knee; M21.161 Varus deformity, not elsewhere classified, right knee; E66.9 Obesity, unspecified; Z96.652 Presence of left artificial knee joint; Z68.31 Body mass index [BMI] 31.0-31.9, adult; Z87.891 Personal history of nicotine dependence; Z72.89 Other problems related to lifestyle; Z79.899 Other long term (current) drug therapy